=== PATIENT | male | born 1995 | race Caucasian/White ===

== ENCOUNTER 2017-02-15 19:26 | Emergency (ER) | payer BC ==
[~2017-02-15] VITALS: Ht 182.9 cm; Wt 65.9 kg
[2017-02-15 19:28] VITALS: TEMP 98.1
[2017-02-15 20:59] LABS: ADJUSTED CALCIUM 8.8 mg/dL (8.4-10.2); ALBUMIN 4.3 gm/dL (3.5-5.0); BILIRUBIN,TOTAL 2.8 mg/dL (0.0-1.0); CREATININE, serum 0.92 mg/dL (0.66-1.25); POTASSIUM 3.4 mmol/L (3.4-5.0); TOTAL PROTEIN 6.8 gm/dL (6.4-8.2)
[2017-02-15 21:14] LABS: BASO % 0.6 % (0.0-2.0); EOS # 0.1 (0.0-0.7); EOS % 1.1 % (0-4.0); GRAN # 2.7 (1.4-6.5); GRAN % 51.3 % (42.2-75.2); HEMATOCRIT 41.7 % (42.0-52.0); HEMOGLOBIN 14.3 g/dl (13.5-18.0); LYMPH % 36.5 % (20.0-51.0); MEAN CELL VOLUME 96 fl (80.0-100.0); MEAN CORPUSCULAR HEMOGLOBIN 33 pg (27.0-31.0); MEAN CORPUSCULAR HGB CONC 34 g/dl (33.0-37.0); MEAN PLATELET VOLUME 11.1 fl (7.4-10.4); MONO # 0.6 (0.1-0.6); MONO % 10.5 % (1.7-9.3); PLATELET COUNT 180 K/mm3 (130-400); RED BLOOD COUNT 4.34 M/mm3 (4.20-5.60); REDCELL DISTRIBUTION WIDTH-CV 12.1 % (11.5-14.5); WHITE BLOOD COUNT 5.3 K/mm3 (4.8-10.8)
[2017-02-15 21:19] LABS: PH 5 (5-8); SQUAMOUS EPITHELIAL None Seen /hpf; URINE APPEARANCE Clear; URINE BACTERIA None Seen /hpf; URINE BILIRUBIN Negative (NEGATIVE); URINE BLOOD Negative (NEGATIVE); URINE COLOR Yellow; URINE GLUCOSE Negative (NEGATIVE); URINE KETONE Negative (NEGATIVE); URINE RBC 0-2 /hpf; URINE UROBILINOGEN Negative (NEGATIVE); URINE WBC 0-2 /hpf
[2017-02-15 22:19] VITALS: BP 128/82; PULSE 68
[2017-02-16 00:19] LABS: CHLAMYDIA/TRACH by PCR Male NOT DETECTED; Neisseria Gon by PCR Male NOT DETECTED
== END 2017-02-15 22:20 | disposition home or self-care (01) ==
LOC: COL.ER 19:26
PROVIDERS: Nurse Practitioner
DX: R55 Syncope and collapse (principal); R10.2 Pelvic and perineal pain; R30.0 Dysuria
CPT/HCPCS: J7030